=== PATIENT | female | born 1970 | race Caucasian/White ===

== ENCOUNTER 2024-02-05 05:11 | Emergency (ER) | payer SELFPAY ==
[2024-02-05] MEDS ORDERED: IBUPROFEN 400 MG TAB ONE (05:19)
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
[2024-02-05 09:54] VITALS: BP 150/98; TEMP 96.5; O2SAT 98
== END 2024-02-05 09:27 | disposition home or self-care (01) ==
LOC: ER 05:11
DX: T76.21XA Adult sexual abuse, suspected, initial encounter (principal)
CPT/HCPCS: 99283